=== PATIENT | female | born 1980 | race Caucasian/White ===

== ENCOUNTER 2016-12-31 13:56 | Emergency (ER) ==
[2016-12-31 14:02] VITALS: BP 155/88; TEMP 98.2; BMI 38.5
--- NOTE | 2016-12-31 14:13 | ED.PDOC ---
General ED Provider: Dr. TANA MCWILLIAMS JR Chief Complaint: Abdominal Pain Stated Complaint: patient states while she was eating at the [employer] she had pain in epigastric area that went through to her back. states she got nauseated and warm. states while she was getting her food her hands were cramping but left was worse. states after she was sitting for a while she had pain to center of chest and bilateral clavicles. states has had what she thought was gallbladder pain before but not the chest pain and cramping. 98.2 96 16 99% 155/88 10/10. cerebral palsy affecting waist down. abd. pain chest pain. cp shunt Time Seen by Physician: 14:12 Mode of Arrival: Walk-In Information Source: Patient Exam Limitations: No limitations Nursing and Triage Documentation Reviewed and Agree: No Review of Systems - Review Of Systems Constitutional: Reports: Malaise, Weakness Eyes: Reports: No symptoms Ears, Nose, Mouth, Throat: Reports: No symptoms Respiratory: Reports: No symptoms Cardiac: Reports: Chest pain, Lightheadedness GI: Reports: Abdominal pain, Nausea : Reports: No symptoms Musculoskeletal: Reports: Other (hand cramping) Skin: Reports: No symptoms Neurological: Reports: No symptoms Endocrine: Reports: No symptoms Hematologic/Lymphatic: Reports: No symptoms All Other Systems: Other Past Medical History - Past Medical History Previously Healthy: Yes Endocrine: Reports: None Cardiovascular: Reports: None Respiratory: Reports: None Hematological: Reports: None Gastrointestinal: Reports: None Genitourinary: Reports: None Neuro/Psych: Reports: Other (cp) Musculoskeletal: Reports: None Cancer: Reports: None Last Menstrual Period: now - Surgical History General Surgical History: Reports: Unknown - Family History Family History: Reports: Unknown - Social History Smoking Status: Never smoker Hx Substance Use: No Alcohol Screening: None Physical Exam - Physical Exam Appearance: Well-appearing, Thin Pain Distress: Mild Eyes: SUMAN, EOMI, Conjunctiva clear ENT: Ears normal, Nose normal, Oropharynx normal Neck: Supple Respiratory: Airway patent, Breath sounds clear, Breath sounds equal, Respirations nonlabored Cardiovascular: RRR, Pulses normal, No rub, No murmur GI/: Soft, Nontender, No masses, Bowel sounds normal, No Organomegaly Musculoskeletal: Limited ROM, Limited strength, Edema (lower extremities- right worse recent ankle sprain) Skin: Warm, Dry, Normal color Neurological: Sensation intact, Motor intact, Reflexes intact, Cranial nerves intact, Alert, Oriented Psychiatric: Affect appropriate, Mood appropriate Interpretation - Radiology Interpretation Radiology Interpretation By: Radiologist Radiology Results: Negative Exam Interpreted: CXR - EKG Interpretation Time of EKG #1: 14:15 Rate: Normal (99) Rhythm: Sinus Ectopy: None [place]: NL ST Segment: Normal Critical Care Note - Critical Care Note Total Time (mins): 10 Course - Course Hematology/Chemistry: 12/31/16 14:15 12/31/16 14:15 Orders, Labs, Meds: Lab Review 12/31/16 14:15 WBC 8.04 RBC 4.59 Hgb 12.2 Hct 37.2 MCV 81.0 MCH 26.6 L MCHC 32.8 RDW Coeff of Christin 13.2 Plt Count 297 Immature Gran % (Auto) 0.2 Neut % (Auto) 71.9 Lymph % (Auto) 20.8 [place] % (Auto) 6.0 Eos % (Auto) 0.5 Baso % (Auto) 0.6 Immature Gran # (Auto) 0.0 Neut # 5.8 Lymph # 1.7 [place] # 0.5 Eos # 0.0 Baso # 0.1 Sodium 140 Potassium 3.6 Chloride 107 Carbon Dioxide 25 Anion Gap 11.6 BUN 8 Creatinine 0.85 Estimated GFR (MDRD) 77.00 BUN/Creatinine Ratio 9.41 Glucose 103 Calcium 9.1 Total Bilirubin 0.29 AST 14 L ALT 16 Alkaline Phosphatase 62 Total Creatine Kinase 81 Troponin I < 0.0100 B-Natriuretic Peptide 62 Total Protein 7.2 Albumin 3.5 Globulin 3.7 Albumin/Globulin Ratio 0.95 Orders Category Date Time Status EKG-(ED ONLY) Stat CARDIO 12/31/16 14:12 Completed ED FINISHING TRIMMER APPLIED .ONCE EMERGENCY 12/31/16 14:12 Active B-TYPE NATRIURETIC PEPTIDE Stat LAB 12/31/16 14:15 Completed CBC W/ AUTO DIFF Stat LAB 12/31/16 14:15 Completed COMPREHENSIVE METABOLIC PANEL Stat LAB 12/31/16 14:15 Completed CREATINE KINASE Stat LAB 12/31/16 14:15 Completed TROPONIN I Stat LAB 12/31/16 14:15 Completed CHEST, 1V AP ONLY Stat RADS 12/31/16 14:12 Completed Vital Signs: Temp Pulse Resp BP Pulse Ox 05/03/17 13:56 98.2 F 96 H 16 155/88 H 99 Departure - Departure Time of Disposition: 15:32 Disposition: HOME SELF-CARE Discharge Problem: Abdominal pain, Food intolerance in adult Instructions: Abdominal Pain (ED) Condition: Good Pt referred to PMD for follow-up: Yes Additional Instructions: inform PMD of ER visit keep record of food eaten before symptoms occurred may be caban to limit food that may have caused symptoms return if chest pain if fever over 101.0 or if uncontrolled vomiting Allergies/Adverse Reactions: Allergies No Known Allergies Allergy (Unverified 12/31/16 14:02) Home Medications: Ambulatory Orders Cholecalciferol (Vitamin D3) [Vitamin D] 400 unit PO DAILY 12/31/16 Ferrous Sulfate [Iron] 325 mg PO DAILY 12/31/16 Norgestimate-Ethinyl Estradiol [Tpo-Dz-Jcjdasquu Tablet] 1 each PO DAILY
[2016-12-31 14:29] LABS: BASOPHILS # (AUTO) 0.1 K/uL (0-0.2); BASOPHILS % (AUTO) 0.6 % (0.0-3.0); EOSINOPHILS % (AUTO) 0.5 % (0.0-7.0); HEMATOCRIT 37.2 % (37.0-47.0); HEMOGLOBIN 12.2 g/dl (12.0-16.0); IMMATURE GRANULOCYTE % (AUTO) 0.2 % (0.0-5.0); LYMPHOCYTES # (AUTO) 1.7 K/uL (0.60-3.4); LYMPHOCYTES % (AUTO) 20.8 (10.0-50.0); MEAN CORPUSCULAR HEMOGLOBIN 26.6 pg (27.0-31.0); MEAN CORPUSCULAR HGB CONC 32.8 (31.8-35.4); MONOCYTES # (AUTO) 0.5 K/uL (0.4-2.0); NEUTROPHILS # (AUTO) 5.8 K/ul (2.0-6.9); NEUTROPHILS % (AUTO) 71.9; PLATELET COUNT 297 10^3/uL (140-440); RED BLOOD COUNT 4.59 10^6/ul (4.20-5.40); WHITE BLOOD COUNT 8.04 K/ul (4.6-10.2)
--- NOTE | 2016-12-31 14:40 | DI ---
EXAM: Single frontal view of the chest HISTORY: Chest pain. COMPARISON: None FINDINGS: Cardiomediastinal silhouette is unremarkable. There is no pneumothorax or pleural effusio n. Shunt tubing is identified with no visualized fracture. Soft tissues and osseous structures are unremarkable. There is no acute consolidation. IMPRESSION: No acute cardiopulmonary process.
[2016-12-31 14:54] LABS: ALANINE AMINOTRANSFERASE 16 U/L (12-78); ALBUMIN 3.5 g/dL (3.4-5.0); ALBUMIN/GLOBULIN RATIO 0.95; ALKALINE PHOSPHATASE 62 U/L (42-98); ANION GAP 11.6; ASPARTATE AMINO TRANSFERASE 14 U/L (15-37); BILIRUBIN,TOTAL 0.29 mg/dL (0.00-1.20); BLOOD UREA NITROGEN 8 mg/dL (7-18); BUN/CREATININE RATIO 9.41; CALCIUM 9.1 mg/dL (8.2-10.2); CARBON DIOXIDE 25 mmol/L (21-32); CHLORIDE 107 mmol/L (98-107); CREATINE KINASE 81 U/L; CREATININE 0.85 mg/dL (0.60-1.30); GLUCOSE 103 mg/dL (70-110); POTASSIUM 3.6 mmol/L (3.5-5.10); SODIUM 140 mmol/L (136-145); TOTAL PROTEIN 7.2 g/dL (6.4-8.2)
== END 2016-12-31 15:46 | disposition home or self-care (01) ==
LOC: ED 13:56
DX: T78.1XXA Other adverse food reactions, not elsewhere classified, initial encounter (principal); R10.13 Epigastric pain; R07.9 Chest pain, unspecified; R25.2 Cramp and spasm; G80.9 Cerebral palsy, unspecified
CPT/HCPCS: 36415; 80053; 82550; 83880; 84484; 85025; 93005; 93010; 99283

== ENCOUNTER 2017-10-26 15:00 | Outpatient (RCR) ==
--- NOTE | 2017-10-02 16:22 | RS.OPPTEV2 ---
Date of Note: 10/02/17 Visit #: 1 Date of Evaluation: 10/02/17 Payer Source: Medicaid Date of Onset/Injury/Change in Status: 08/20/17 Treatment Diagnosis: Left knee pain History of Condition/Mechanism of Injury:: Patient reports left knee pain since 08/20/17. States she was descending stairs and she missed the last step with the right foot and came down on the left leg, hitting the left knee on the concrete. Prior Level of Function.....Patient was independent with: ADL's, Self Care, Caregiving, Ambulation/Mobility, Community Integration/Access Functional Limitations: Sleep, ADL's, Lifting, Sitting, Standing, Bending, Squatting, Ambulation, Community Access/Integration Current Subjective/complaints:: Patient reports left knee pain. States most of her pain is around the knee cap and the medial side of the knee joint. She also describes pain in the back of the knee and base of the thigh. States she has difficulty with bending the knee. Reports getting in and out of bed and her car is difficult. She has been wearing a hinged brace on the left knee for about three weeks. States the brace limits her motion, but feels like it gives her more stability. She has 16 stairs at home. She tries to avoid making multiple trips up and down the stairs. Also reports pain in the arch of the right foot, which may be affecting her walking and bothering the left knee. She cannot have an MRI because she has a shunt that has metal in it. She had a CT of the knee which revealed no fracture. Treatment Side (optional): Left Medical History Medical History Comments:: Cerebral Palsy, several shunt revisions Surgical History Comments:: 7 shunt revisions Smoking Status: Never smoker Hx Home Medications: Ibuprofen PRN Patient's Goals: Her goal is to get relief of left knee pain. Pain Assessment - Pain Description Pain Location: left knee Pain Description: Sharp, Aching Current Pain Intensity: 5/10 Worst Pain Intensity: 10/10 Functional Outcome Measure LE Functional Scale: 28 (28/80=65% impairment) - G Codes & Severity Modifier G Codes & Modifier: NA Source of G Code score: NA Observation - Observation Inspection: Patient presents to therapy with cane and a hinged brace on the left knee. Left knee demonstrates dark area or bruise the size of a quarter, just lateral to the patella tendon. Posture: Increased Lumbar Lordosis, Anterior Pelvic Tilt Comments: Bilateral genu valgus and pes planus. Girth Measurement Lower: Tibial plateau: right 40 cm, left 40.5 cm. Mid patella: right 45 cm, left 45.75 cm Gait - Gait Pattern Gait Comments: Patient ambulates with a wooden, straight cane in the right hand. She demonstrates an antalgic gait, with decreased stance on the left LE. She lacks full knee extension during heel strike. Patient has mild Cerebral Palsy, and demonstrates pronation of the foot/ankle during and at the end of swing phase. - Left Knee ROM Left Knee Extension: -8 degrees from full extension Left Knee Flexion: 82 (degrees AROM) Knee ROM Limitations: Soft Tissue Tightness, Pain - Right Knee ROM Right Knee Extension: -4 degrees from full extension Right Knee Flexion: 107 (degrees AROM) - Left Knee Strength Left Knee Extension: 4 Good Left Knee Flexion: 4 Good - Right Knee Strength Right Knee Extension: 4+ Good + Right Knee Flexion: 4+ Good + - Special Tests Knee Anterior Drawer Test: Negative Left, Negative Right Knee Posterior Drawer Test: Negative Left, Negative Right Knee Valgus Stress Test: Negative Left, Positive Left (due to pain, no hypomobility) Knee Varus Stress Test: Negative Left, Negative Right Knee Hoa Test: Negative Right, Positive Left Palpation Comments:: Patient reports tenderness with palpation along the left knee medial joint line, patellar and quad tendons, and over the medial tibial condyle. Also reports some tenderness in the HS tendons of the left knee. Sensation - Sensation Right Lower Extremity: Intact/Normal Left Lower Extremity: Intact/Normal Additional Comments: Additional Comments: HS are significantly tight. Right SLR to 35 degrees, left 25-30. (both knees lack full extension). Bilateral heelcords are tight: -5 from neutral DF. - Treatment Modality: Ultrasound Parameters/Method Applied: X 12 mins to the left knee , along the medial region of the knee joint and over the patellar and quad tendons. Patient Position: Supine (with head of bed raised to long sitting) Interventions - Exercise/Activities/Manual Therapy Exercises/Activities: Patient given instructions/pictures of stretching: Heelcord stretch facing the wall, heelcord and HS stretch with towel or belt, plantar fascia stretch, and hip flexor stretch. Manual Therapy: na HOME EXERCISE PROGRAM: Heelcord stretch facing the wall, heelcord and HS stretch with towel or belt, plantar fascia stretch, and hip flexor stretch. - Charges Timed Code Treatment Minutes: 95 mins Total Treatment Time: 95 mins Procedures billed for this date of service:: [facility], EVALUATION COMPLEXITY LEVEL EVALUATION COMPLEXITY LEVEL: HISTORY: Medium, EXAM OF BODY SYSTEMS: Medium, CLINICAL PRESENTATION: Medium, CLINICAL DECISION MAKING: Medium Assessment Assessment: Patient presents with left knee pain due to a fall. She demonstrates limited left knee AROM and pain limiting her functional ability with stairs, getting in/out of car, bed, chair. She demonstrates symptoms of strain of the knee joint along the medial structures of the knee, and of quad/ patella tendon, and she will benefit from modalities to reduce inflammation and exercises to regain functional AROM and joint stability. Patient Education: Education of diagnosis, Body/Joint mechanics, Home Exercise Program, Home Safety, Activity Modification, Education of Plan of Care Rehab Potential: Good Short Term Goals Goal #1: Patient to be Independent and compliant with basic HEP Goal to be met by: 10/16/17 Goal #2: Left quad strength improved to 4+/5. Goal to be met by: 10/16/17 Goal #3: Left knee active flexion to 100 degrees. Goal to be met by: 10/16/17 Goal #4: Left knee extension to -4 degrees. Goal to be met by: 10/16/17 [facility] Goals Goal #1: Patient knows HEP and to continue with exercise after D/C from therapy Goal to be met by: 11/11/17 Goal #2: Patient to ascend/descend stairs with min left knee pain. Goal to be met by: 11/11/17 Goal #3: Pt able to get in/out of car without left knee pain. Goal to be met by: 11/11/17 Goal #4: Pt to amb. w/o assistive device, community distances w/ min. L knee pain. Goal to be met by: 11/11/17 Plan - Treatment to be Provided Procedures: Therapeutic Exercises, Therapeutic Activity, Manual Therapy, Patient Education Modalities: Electrical Stimulation, Ultrasound/Phonophoresis, Class IV Laser, Cryotherapy, Hot Packs - Treatment Plan Frequency: 3 X week Duration: 4 weeks ORDER # VISITS AND/OR THROUGH DATE: 11/11/17 - Treatment Code (1) Knee pain Code(s): M25.569 - PAIN IN UNSPECIFIED KNEE Qualifiers: Chronicity: acute Laterality: left Qualified Code(s): M25.562 - Pain in left knee (2) Strain of left knee Code(s): S86.912A - STRAIN OF UNSP MUSC/TEND AT LOWER LEG LEVEL, LEFT LEG, INIT Qualifiers: Encounter type: subsequent encounter Qualified Code(s): S86.912D - Strain of unspecified muscle(s) and tendon(s) at lower leg level, left leg, subsequent encounter (3) Fall (on) (from) other stairs and steps, subsequent encounter Code(s): W10.8XXD - FALL (ON) (FROM) OTHER STAIRS AND STEPS, SUBS ENCNTR Comments: W10.8XXD (4) Cerebral palsy Code(s): G80.9 - CEREBRAL PALSY, UNSPECIFIED Qualifiers: Cerebral palsy type: unspecified type Qualified Code(s): G80.9 - Cerebral palsy, unspecified
--- NOTE | 2017-10-06 16:15 | RS.OPPTDN ---
Subjective Date of Note: 10/06/17 Visit #: 2 Date of Evaluation: 10/02/17 Payer Source: Medicaid Treatment Diagnosis: Left knee pain Current Subjective/complaints:: Patient reports first treatment of US seems to have reduced swelling in the left knee. States she is working on HEP. Reports continued right foot pain and is working on stretches as instructed. Pain Assessment - Pain Description Pain Location: Left knee Current Pain Intensity: mod - Treatment Modality: Ultrasound Parameters/Method Applied: [id number] at 1.5w/cm2 to the left knee joint with focus on medial joint line. Patient Position: Supine Interventions - Exercise/Activities/Manual Therapy Exercises/Activities: Attempted gentle ham stretch. Quad sets, multiple reps. Ham sets 2s/10reps. Assist SLR and assist hip abd/add 4s/5reps each. Assist heel slides. Isometric hip add with ball. Patient need frequent rest breaks and needs position changes to relieve pain. Total minutes of Exercise: 30mins Manual Therapy: na HOME EXERCISE PROGRAM: Heelcord stretch facing the wall, heelcord and HS stretch with towel or belt, plantar fascia stretch, and hip flexor stretch. - Charges Timed Code Treatment Minutes: 42mins Total Treatment Time: 45mins Procedures billed for this date of service:: US, EX2 Assessment: Patient reporting good response to modalities and appears motivated to work on HEP. Patient Education: Education of diagnosis, Body/Joint mechanics, Home Exercise Program, Home Safety Comments: Patient education joint mechanics and safety precautions. Patient demonstrates compliance with HEP?: Yes Short Term Goals Goal #1: Patient to be Independent and compliant with basic HEP Goal to be met by: 10/16/17 Progress towards Goal:: Progressing Goal #2: Left quad strength improved to 4+/5. Goal to be met by: 10/16/17 Goal #3: Left knee active flexion to 100 degrees. Goal to be met by: 10/16/17 Progress towards Goal:: Progressing Goal #4: Left knee extension to -4 degrees. Goal to be met by: 10/16/17 Progress towards Goal:: Progressing [facility] Goals Goal #1: Patient knows HEP and to continue with exercise after D/C from therapy Goal to be met by: 11/11/17 Goal #2: Patient to ascend/descend stairs with min left knee pain. Goal to be met by: 11/11/17 Goal #3: Pt able to get in/out of car without left knee pain. Goal to be met by: 11/11/17 Goal #4: Pt to amb. w/o assistive device, community distances w/ min. L knee pain. Goal to be met by: 11/11/17 Plan PLAN OF CARE EXPIRES ON:: 11/11/17 ORDER # VISITS AND/OR THROUGH DATE: 11/11/17 PLAN: Continue modalities and progress exercise to reduce pain and increase functional activities.
--- NOTE | 2017-10-08 16:23 | RS.OPPTDN ---
Subjective Date of Note: 10/08/17 Visit #: 3 Date of Evaluation: 10/02/17 Payer Source: Medicaid Treatment Diagnosis: Left knee pain Current Subjective/complaints:: States she feels like the ultrasound is helping. States she can now climb into bed on the left knee, but tries not to do it very often. Patient reported discomfort with ball squeeze. - Treatment Modality: Ultrasound Parameters/Method Applied: X 12 mins to the left knee, along the medial joint line, to the patellar and quad tendon, and the posterior/medial region of the joint. Patient Position: Supine Interventions - Exercise/Activities/Manual Therapy Exercises/Activities: Assisted with 90/90 ham stretch. Pt with knee pain attempting HS stretch with knee extension. Stretch to heelcords. Quad sets 2 sets of 10 with thin pillow under knee. Ham sets 2s/10reps. Assist SLR and assist hip abd/add 4s/5reps each. Demonstrated SLR in standing and recommended she add to HEP. Recommended patient use pillow for hip adduction, due to reports of discomfort from pressure with ball squeeze. Total minutes of Exercise: 26 mins Manual Therapy: na HOME EXERCISE PROGRAM: Heelcord stretch facing the wall, heelcord and HS stretch with towel or belt, plantar fascia stretch, and hip flexor stretch, standing SLR into flexion - Charges Timed Code Treatment Minutes: 38 mins Total Treatment Time: 38 mins Procedures billed for this date of service:: US, EX2 Assessment: Patient reports some improvement with pain. She feels the ultrasound is helping. Reports continued knee pain with ambulation and certain positions. Patient Education: Education of diagnosis, Body/Joint mechanics, Home Exercise Program, Activity Modification, Education of Plan of Care Short Term Goals Goal #1: Patient to be Independent and compliant with basic HEP Goal to be met by: 10/16/17 Progress towards Goal:: Progressing Goal #2: Left quad strength improved to 4+/5. Goal to be met by: 10/16/17 Goal #3: Left knee active flexion to 100 degrees. Goal to be met by: 10/16/17 Progress towards Goal:: Progressing Goal #4: Left knee extension to -4 degrees. Goal to be met by: 10/16/17 Progress towards Goal:: Progressing Jerker Goals Goal #1: Patient knows HEP and to continue with exercise after D/C from therapy Goal to be met by: 11/11/17 Goal #2: Patient to ascend/descend stairs with min left knee pain. Goal to be met by: 11/11/17 Goal #3: Pt able to get in/out of car without left knee pain. Goal to be met by: 11/11/17 Goal #4: Pt to amb. w/o assistive device, community distances w/ min. L knee pain. Goal to be met by: 11/11/17 Plan PLAN OF CARE EXPIRES ON:: 11/11/17 ORDER # VISITS AND/OR THROUGH DATE: 11/11/17 PLAN: Progress exercises to gain ROM and joint strength.
--- NOTE | 2017-10-13 16:18 | RS.OPPTDN ---
Subjective Date of Note: 10/13/17 Visit #: 4 Date of Evaluation: 10/02/17 Payer Source: Medicaid Treatment Diagnosis: Left knee pain Current Subjective/complaints:: Patient reports treatment and exercise have reduced left knee pain. She reports she is working on HEP. Pain Assessment - Pain Description Pain Location: Left knee joint Pain Description: Aching Current Pain Intensity: mod with walking or resistive exercise. - Treatment Modality: Ultrasound Parameters/Method Applied: [id number] at 1.5w/cm2 to the left knee joint prior to EX. Patient Position: Supine Interventions - Exercise/Activities/Manual Therapy Exercises/Activities: Assisted with 90/90 ham stretch. Assisted knee flexion and heelcord stretching. Quad sets and ham sets. Isometric hip add. Assist SLR and assist hip abd/add. Red theraband for ankle df and ham curl. Ended with additional hamstring stretching bilaterally. Total minutes of Exercise: 30mins Manual Therapy: na HOME EXERCISE PROGRAM: Heelcord stretch facing the wall, heelcord and HS stretch with towel or belt, plantar fascia stretch, and hip flexor stretch, standing SLR into flexion - Charges Timed Code Treatment Minutes: 40mins Total Treatment Time: 40mins Procedures billed for this date of service:: US, EX2 Assessment: Patient reporting improvement in pain and is working on HEP. Patient Education: Education of diagnosis, Body/Joint mechanics, Home Exercise Program, Home Safety, Activity Modification Patient demonstrates compliance with HEP?: Yes Short Term Goals Goal #1: Patient to be Independent and compliant with basic HEP Goal to be met by: 10/16/17 Progress towards Goal:: Progressing Goal #2: Left quad strength improved to 4+/5. Goal to be met by: 10/16/17 Goal #3: Left knee active flexion to 100 degrees. Goal to be met by: 10/16/17 Progress towards Goal:: Progressing Goal #4: Left knee extension to -4 degrees. Goal to be met by: 10/16/17 Progress towards Goal:: Partially Met Assisted Goals Goal #1: Patient knows HEP and to continue with exercise after D/C from therapy Goal to be met by: 11/11/17 Goal #2: Patient to ascend/descend stairs with min left knee pain. Goal to be met by: 11/11/17 Goal #3: Pt able to get in/out of car without left knee pain. Goal to be met by: 11/11/17 Goal #4: Pt to amb. w/o assistive device, community distances w/ min. L knee pain. Goal to be met by: 11/11/17 Progress towards goal: Progressing Plan PLAN OF CARE EXPIRES ON:: 11/11/17 ORDER # VISITS AND/OR THROUGH DATE: 11/11/17 PLAN: Continue modalities and progress exercise to reduce pain and increase functional activity level.
--- NOTE | 2017-10-15 16:26 | RS.OPPTDN ---
Subjective Date of Note: 10/15/17 Visit #: 5 Date of Evaluation: 10/02/17 Payer Source: Medicaid Treatment Diagnosis: Left knee pain Current Subjective/complaints:: Patient reports stairs are not getting any easier. But, she is able to get in and out of the vehicle as easy as she could before this knee injury. She reports the left knee continues to feel like lead when attempting SLR's. States today she probably didn't have to use the cane, but used it anyway for safety. - Treatment Modality: Ultrasound Parameters/Method Applied: 15 mins @ 1.5 w/cm2 continuous to left medial/ posterior and medial/anterior aspect of the knee joint. 10% Hydrocortisone cream used. Patient Position: Supine (with head of bed elevated) Interventions - Exercise/Activities/Manual Therapy Exercises/Activities: Assisted with 90/90 ham stretch. Assisted knee flexion and heelcord stretching. Quad sets and ham sets. Isometric hip add. Assist SLR and assist hip abd/add. Red theraband for ankle df and ham curl. Patient demonstrates mild clonus when attempting to stretch the heelcord. Discussed trying to ascend/descend stairs laterally to decrease strain on the knee joint. By the end of the therapy session, patient was able to perform 3 SLR's unassisted. Total minutes of Exercise: X 33 mins Manual Therapy: na HOME EXERCISE PROGRAM: Heelcord stretch facing the wall, heelcord and HS stretch with towel or belt, plantar fascia stretch, and hip flexor stretch, standing SLR into flexion - Charges Timed Code Treatment Minutes: 48 mins Total Treatment Time: 48 mins Procedures billed for this date of service:: US, EX2 Assessment: Patient demonstrates improved tolerance for exercises. At the end of today's session she was able to perform SLR a few times unassisted. She reports greater ease with getting in and out of a vehicle. She is worried it will be more difficult when the weather gets cold again. States stairs continue to be difficult. Patient Education: Education of diagnosis, Body/Joint mechanics, Home Exercise Program, Home Safety, Activity Modification Patient demonstrates compliance with HEP?: Yes Short Term Goals Goal #1: Patient to be Independent and compliant with basic HEP Goal to be met by: 10/16/17 Progress towards Goal:: Met Goal #2: Left quad strength improved to 4+/5. Goal to be met by: 10/16/17 Progress towards Goal:: Progressing Goal #3: Left knee active flexion to 100 degrees. Goal to be met by: 10/16/17 Progress towards Goal:: Progressing Goal #4: Left knee extension to -4 degrees. Goal to be met by: 10/16/17 Progress towards Goal:: Partially Met Mcfp Goals Goal #1: Patient knows HEP and to continue with exercise after D/C from therapy Goal to be met by: 11/11/17 Progress towards goal: Progressing Goal #2: Patient to ascend/descend stairs with min left knee pain. Goal to be met by: 11/11/17 Goal #3: Pt able to get in/out of car without left knee pain. Goal to be met by: 11/11/17 Progress towards goal: Progressing Comments: Today reports this activity is much easier. Goal #4: Pt to amb. w/o assistive device, community distances w/ min. L knee pain. Goal to be met by: 11/11/17 Progress towards goal: Progressing Plan PLAN OF CARE EXPIRES ON:: 11/11/17 ORDER # VISITS AND/OR THROUGH DATE: 11/11/17 PLAN: Continue one more week for use of US to promote healing and decrease inflammation, and also progress exercises.
--- NOTE | 2017-10-20 15:31 | RS.OPPTDN ---
Subjective Date of Note: 10/20/17 Visit #: 6 Date of Evaluation: 10/02/17 Payer Source: Medicaid Treatment Diagnosis: Left knee pain Current Subjective/complaints:: Patient reports left knee pain is better today. She reports she is having some difficulty walking today due to right foot plantar fascitis. States she has difficulty with hamstring stretch but is working on HEP. Pain Assessment - Pain Description Pain Location: Left knee Current Pain Intensity: mild to mod - Treatment Modality: Ultrasound Parameters/Method Applied: [id number] at 1.5w/cm2 to the left knee joint prior to EX. Patient in supine. Patient Position: Supine Interventions - Exercise/Activities/Manual Therapy Exercises/Activities: Assisted with 90/90 ham stretch. Assisted knee flexion and heelcord stretching. Quad sets and ham sets. Isometric hip add. SLR and assist hip abd/add. SAQ with 2#, 2s/10reps. Red theraband for ankle df and ham curl. Gentle stretching of the left heel cords. In sitting, isometric knee flexion/extension. Red therabandf or ham curl. Total minutes of Exercise: 30mins Manual Therapy: na HOME EXERCISE PROGRAM: Heelcord stretch facing the wall, heelcord and HS stretch with towel or belt, plantar fascia stretch, and hip flexor stretch, standing SLR into flexion - Charges Timed Code Treatment Minutes: 40mins Total Treatment Time: 42mins Procedures billed for this date of service:: US, EX2 Assessment: Patient reporting progress with left knee pain. Patient Education: Home Exercise Program Patient demonstrates compliance with HEP?: Yes Short Term Goals Goal #1: Patient to be Independent and compliant with basic HEP Goal to be met by: 10/16/17 Progress towards Goal:: Met Goal #2: Left quad strength improved to 4+/5. Goal to be met by: 10/16/17 Progress towards Goal:: Progressing Goal #3: Left knee active flexion to 100 degrees. Goal to be met by: 10/16/17 Progress towards Goal:: Partially Met Goal #4: Left knee extension to -4 degrees. Goal to be met by: 10/16/17 Progress towards Goal:: Partially Met Alf Goals Goal #1: Patient knows HEP and to continue with exercise after D/C from therapy Goal to be met by: 11/11/17 Progress towards goal: Partially Met Goal #2: Patient to ascend/descend stairs with min left knee pain. Goal to be met by: 11/11/17 Progress towards goal: Partially Met Goal #3: Pt able to get in/out of car without left knee pain. Goal to be met by: 11/11/17 Progress towards goal: Partially Met Goal #4: Pt to amb. w/o assistive device, community distances w/ min. L knee pain. Goal to be met by: 11/11/17 Progress towards goal: Progressing Plan PLAN OF CARE EXPIRES ON:: 11/11/17 ORDER # VISITS AND/OR THROUGH DATE: 11/11/17 PLAN: Continue modalities and progress exercise to reduce pain and increase patients functional activity level.
--- NOTE | 2017-10-22 15:50 | RS.CXNS ---
Date of scheduled appointment: 10/22/17 Type: Cancel (Patient called to cancel appointment. Rescheduled for next week.)
--- NOTE | 2017-10-26 16:30 | RS.OPPTDN ---
Subjective Date of Note: 10/26/17 Visit #: 7 Date of Evaluation: 10/02/17 Payer Source: Medicaid Treatment Diagnosis: Left knee pain Current Subjective/complaints:: Patient reports modalities have helped reduce pain for 2-3 days at a time, but it seems to return. States she is workingon HEP and working toward independent SLr. Patient agrees to continue HEP as insurance has not apporved her treatment and we will need to hold additional visits. Pain Assessment - Pain Description Pain Location: Left knee Pain Description: Aching Current Pain Intensity: 4/10 Other Comments regarding Pain:: Reports increased pain with stairs at home. - Treatment Modality: Ultrasound Parameters/Method Applied: [id number] at 1.5w/cm2 to the left knee joint prior to EX. Patient Position: Supine Interventions - Exercise/Activities/Manual Therapy Exercises/Activities: Assisted with 90/90 ham stretch. Assisted knee flexion and heelcord stretching. Quad sets and ham sets. Isometric hip add. SLR, with patient able to perform 2-3 reps at a time without assist. Hip abd/add, 4s/ 5reps. SAQ no weights, 2s/10reps. Red theraband for ankle df and ham curl. Gentle stretching of the left heel cords. Discussed HEP and need to continue following discharge. Total minutes of Exercise: 30mins Manual Therapy: na HOME EXERCISE PROGRAM: Heelcord stretch facing the wall, heelcord and HS stretch with towel or belt, plantar fascia stretch, and hip flexor stretch, standing SLR into flexion - Objective Findings Observations,measurements,etc.: Patient demos 4+/5 MMT left knee. Active left knee flexion to 100 degrees or slightly better and full extension with quad sets. - Charges Timed Code Treatment Minutes: 40mins Total Treatment Time: 45mins Procedures billed for this date of service:: US, EX2 Assessment: Patient will need to continue HEP to maintain left LE strength. Patient Education: Home Exercise Program, Education of Plan of Care Patient demonstrates compliance with HEP?: Yes Short Term Goals Goal #1: Patient to be Independent and compliant with basic HEP Goal to be met by: 10/16/17 Progress towards Goal:: Met Goal #2: Left quad strength improved to 4+/5. Goal to be met by: 10/16/17 Progress towards Goal:: Met Goal #3: Left knee active flexion to 100 degrees. Goal to be met by: 10/16/17 Progress towards Goal:: Met Goal #4: Left knee extension to -4 degrees. Goal to be met by: 10/16/17 Progress towards Goal:: Met Child Development Consultant Goals Goal #1: Patient knows HEP and to continue with exercise after D/C from therapy Goal to be met by: 11/11/17 Progress towards goal: Met Goal #2: Patient to ascend/descend stairs with min left knee pain. Goal to be met by: 11/11/17 Progress towards goal: Partially Met Goal #3: Pt able to get in/out of car without left knee pain. Goal to be met by: 11/11/17 Progress towards goal: Partially Met Goal #4: Pt to amb. w/o assistive device, community distances w/ min. L knee pain. Goal to be met by: 11/11/17 Progress towards goal: Progressing Plan PLAN OF CARE EXPIRES ON:: 11/11/17 ORDER # VISITS AND/OR THROUGH DATE: 11/11/17 PLAN: Discharge with HEP.
--- NOTE | 2017-10-26 16:31 | RS.QUICKDC ---
Discharge from PT Date of Discharge: 10/26/17 Number of Visits: 7 Reason for Discharge: Patient completed 7 sessions and reports only min pain reduction with modalities. Insurance approval has not been received. Patient will continue HEP at this time. Discharge.
== END 2017-10-28 ==
PROVIDERS: ATTEND Family Medicine
DX: M25.562 Pain in left knee (principal)

== ENCOUNTER 2019-04-25 13:00 | Outpatient (RCR) ==
--- NOTE | 2019-04-19 11:09 | RS.OPPTEV2 ---
Date of Note: 04/19/19 Visit #: 1 Number of visits approved by Insurance: pending Date of Evaluation: 04/19/19 Payer Source: Medicaid Surgery Performed?: No Treatment Diagnosis: cervical pain, muscle tightness History of Condition/Mechanism of Injury:: Pain began in cervical spine in February 2019. No definite injury noted. Prior Level of Function.....Patient was independent with: ADL's, Self Care, Caregiving (has 3 y/o daughter.), Ambulation/Mobility, Community Integration/ Access Functional Limitations: Sleep, Reaching, Pushing, Pulling, Lifting Current Subjective/complaints:: pt states that her pain has been increasing since february. 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 Reports that pain causing headaches at base of skull. 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, NO ULTRASOUND OR ESTIM OVER SHUNT Medical History Medical History: Arthritis Medical History Comments:: Cerebral Palsy Surgical History: Cholecystectomy (2017), Surgical History Comments:: DEER FARM WORKER shunt placement and 7 shunt revisions, bladder repair 2016, Smoking Status: Never smoker Diagnostic Testing/Imaging:: states she has not had any imaging of neck Hx Home Medications: Ibuprofen, tylenol PRN for pain Patient's Goals: decrease cervical pain Pain Assessment - Pain Description Pain Location: cervical spine with headache Pain Description: Aching Current Pain Intensity: 6/10 Worst Pain Intensity: 8/10 Functional Outcome Measure Neck Disability Index: 13 - G Codes & Severity Modifier G Codes & Modifier: n/a Source of G Code score: n/a Observation - Observation Inspection: pt with muscle tightness noted in B upper trap R worse than L Posture: Forward Head, Decreased Thoracic Kyphosis, Increased Lumbar Lordosis Handedness: Right Gait - Gait Pattern Gait Comments: pt amb with scissored gait due to cerebral palsy. General Range of Motion: BUE WFL's. BLE WFL's Muscle Strength: BUE 5/5, with some discomfort with shld flex. BLE 5/5 - ROM Cervical Spine Range of Motion Limitations: Soft Tissue Tightness, Muscle Weakness, Pain Comments: pt with cervical ROM WFL's with pain with flex, R rotation, R lat side bending. - Strength Cervical Extension: 4 Good Cervical Flexion: 4- Good- Cervical Lateral Flexion: 4- Good- Cervical Rotation: 4- Good- - Special Tests Foraminal Distraction: Negative Foraminal Compression: Negative Left, Negative Right Palpation Palpation Findings: Tenderness, Trigger Point, Muscle Guarding Comments:: pt presents with tenderness to palpation B upper trap R worse than L , as well as occiput. pt with trigger points noted to R upper trap, L medial border of scapula. Sensation - Sensation Right Upper Extremity: Intact/Normal Left Upper Extremity: Intact/Normal Right Lower Extremity: Intact/Normal Left Lower Extremity: Intact/Normal Balance - Sitting Balance Static Sitting Balance: Normal Dynamic Sitting Balance: Normal - Standing Balance Static Standing Balance: Normal Dynamic Standing Balance: Normal - Heat/Cryotherapy Treatment: Cryotherapy Comments:: cervical spine Interventions - Exercise/Activities/Manual Therapy Exercises/Activities: pt performed cervical retraction, scapular retraction, upper trap stretch, corner stretch. Discussion with patient regarding body mechanics especially with lifting 5y/o. Manual Therapy: na HOME EXERCISE PROGRAM: pt given written HEP including: cervical retraction, scapular retraction, corner stretch, as well as upper trap stretch. - Charges Timed Code Treatment Minutes: 49 Total Treatment Time: 65 Procedures billed for this date of service:: eval low, cp, ex EVALUATION COMPLEXITY LEVEL EVALUATION COMPLEXITY LEVEL: HISTORY: Low (OA, CP, h/o evp global product leadership shunt, ), EXAM OF BODY SYSTEMS: Low, CLINICAL PRESENTATION: Low, CLINICAL DECISION MAKING: Low Assessment Assessment: pt presents with cervical pain with headache. pt with tightness noted in upper trap R worse than L. pt with trigger points noted in R upper trap and L medial scapula. Also pt with postural deficits noted. Feel pt would benefit from skilled PT for therex for cervical ROM, stretching to decrease pain. Patient Education: Home Exercise Program, Education of Plan of Care Rehab Potential: Good Short Term Goals Goal #1: pt independent with initial HEP Goal to be met by: 05/06/19 Goal #2: Decrease cervical pain < 6/10 Goal to be met by: 05/06/19 Goal #3: Decrease tightness R upper trap equal to L. Goal to be met by: 05/06/19 Goal #4: . Heel Sprayer First Goals Goal #1: pt no longer have c/o of headache Goal to be met by: 05/20/19 Goal #2: pt report able to sleep 4 hours without interruption from pain Goal to be met by: 05/20/19 Goal #3: pt perform normal daily household activities w less pain Goal to be met by: 05/20/19 Goal #4: Cervical Pain decreased < 3/10 Goal to be met by: 05/20/19 Plan - Treatment to be Provided Procedures: Therapeutic Exercises, Therapeutic Activity, Manual Therapy (TO LOWER TRAP ONLY NOT TO CERVICAL AREA), Patient Education Modalities: Electrical Stimulation (TO LOWER TRAP ONLY NOT TO CERVICAL AREA* ), Cryotherapy, Hot Packs - Treatment Plan Frequency: 2 X week Duration: 4 weeks Dates of [facility] Goals: 05/20/19 Expiration date of current Insurance Approval:: pending - Treatment Code (1) Cervical pain Code(s): M54.2 - CERVICALGIA (2) Muscle tightness Code(s): M62.89 - OTHER SPECIFIED DISORDERS OF MUSCLE
--- NOTE | 2019-04-25 14:28 | RS.OPPTDN ---
Subjective Date of Note: 04/25/19 Visit #: 2 Number of visits approved by Insurance: pending Date of Evaluation: 04/19/19 Payer Source: Medicaid Treatment Diagnosis: cervical pain, muscle tightness Current Subjective/complaints:: Patient reports the back of her neck feels swollen and inflammed today. 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 total to L and R upper trap. muscle belly @ 1.5 w/cm2,cont. mode. - Heat/Cryotherapy Treatment: Hot Pack (20 mins. to each upper traps prior to US and exercises) Interventions - Exercise/Activities/Manual Therapy Exercises/Activities: 25 mins. total in supine of [place] stretch,shoulder depression ,occipital release,chin tucks,rotation to L and R lateral flexion to L and R , HEP review also ,including the standing corner stretches given at [facility]. Total minutes of Exercise: 25 Manual Therapy: na Total minutes of Manual Therapy: 0 HOME EXERCISE PROGRAM: pt given written HEP including: cervical retraction, scapular retraction, corner stretch, as well as upper trap stretch. - Charges Timed Code Treatment Minutes: 40 Total Treatment Time: 60 Procedures billed for this date of service:: hp,US,ex 2 Assessment: Patient reports relief with passive shoulder depression and occipital release today.She is attentive and motivated to improve,has good recall of HEP,demos them as we discuss them today. Patient Education: Education of diagnosis, Body/Joint mechanics, Home Exercise Program, Home Safety, Activity Modification, Education of Plan of Care Patient demonstrates compliance with HEP?: Yes Short Term Goals Goal #1: pt independent with initial HEP Goal to be met by: 05/06/19 Progress towards Goal:: Progressing Goal #2: Decrease cervical pain < 6/10 Goal to be met by: 05/06/19 Progress towards Goal:: Progressing Goal #3: Decrease tightness R upper trap equal to L. Goal to be met by: 05/06/19 Goal #4: . Environment Coordinator Goals Goal #1: pt no longer have c/o of headache Goal to be met by: 05/20/19 Goal #2: pt report able to sleep 4 hours without interruption from pain Goal to be met by: 05/20/19 Goal #3: pt perform normal daily household activities w less pain Goal to be met by: 05/20/19 Goal #4: Cervical Pain decreased < 3/10 Goal to be met by: 05/20/19 Plan Dates of Group Home Goals: 05/20/19 Expiration date of current Insurance Approval:: 05/20/19 PLAN: Cont. skilled PT to reduce /eliminate cervical pain ,return to PLOF.
--- NOTE | 2019-04-28 11:58 | RS.CXNS ---
Date of scheduled appointment: 04/28/19 Type: Cancel Reason for Cancel/NS: called to cancel due to being in [place] with her father who is in hospital. pt rescheduled for next week.
== END 2019-04-30 23:59 ==
PROVIDERS: ATTEND Family Medicine
DX: M54.2 Cervicalgia (principal)